=== PATIENT | male | born 2000 | race Caucasian/White ===

== ENCOUNTER 2023-05-24 16:37 | Emergency (ER) | payer MEDICAID, OTHER ==
[~2023-05-24] VITALS: Ht 162.6 cm; Wt 54.0 kg
[2023-05-24 16:53] VITALS: O2SAT 99
[2023-05-24 17:00] VITALS: BP 120/79; PULSE 87; RESP 20; TEMP 98.1
== END 2023-05-24 19:02 | disposition home or self-care (01) ==
LOC: ER 16:37
DX: M79.602 Pain in left arm (principal)
CPT/HCPCS: 99281